=== PATIENT | male | born 1990 | race Hispanic/Latino ===

== ENCOUNTER 2017-01-02 00:07 | Emergency (ER) | payer OTHER ==
[~2017-01-02] VITALS: Ht 180.3 cm; Wt 108.0 kg
[~2017-01-02 00:07] MED LIST: ABILIFY15 MG PO; NO HOME MEDS; SEROQUEL50 MG PO
[2017-01-02 00:41] LABS: HEMATOCRIT 44.7 % (38.0-50.0); MCH 28.5 PG (29.0-34.0); MCHC 33.6 G/DL (30.0-36.0); MCV 84.8 FL (86-99); MEAN PLAT.VOLUME 8.9 uM^3 (9.0-12.4); PLATELET COUNT 359 K/uL (156-360); RED BLOOD COUNT 5.27 M/uL (4.00-5.50); WHITE BLOOD COUNT 14.5 K/uL (4.1-10.2)
[2017-01-02 00:53] LABS: CHLORIDE 105 mEq/L (99-109); POTASSIUM 3.6 mEq/L (3.7-5.4); SODIUM 139 mEq/L (136-147)
[2017-01-02 00:55] LABS: GLUCOSE 114 mg/dL (70-99)
[2017-01-02 00:56] LABS: ANION GAP 14 MEQ/L (2-14)
[2017-01-02 00:57] LABS: TOTAL BILIRUBIN 1.1 mg/dL (0.0-1.0)
[2017-01-02 00:58] LABS: SERUM ETHYL ALCOHOL < 10 mg/dL
[2017-01-02 00:59] LABS: GFR ESTIMATE (CALCULATED) > 59 mL/min/
[2017-01-02 01:00] LABS: ALKALINE PHOSPHATASE 84 IU/L (3-129)
[2017-01-02 01:01] LABS: DIRECT BILIRUBIN 0.4 mg/dL (0.0-0.3); UREA NITROGEN (BUN) 22 mg/dL (9-23)
[2017-01-02 01:02] LABS: SALICYLATE < 5.0 MG/DL (15-30)
[2017-01-02 05:21] LABS: TOTAL BILIRUBIN 1.2 mg/dL (0.0-1.0)
[2017-01-02 05:22] LABS: ALKALINE PHOSPHATASE 80 IU/L (3-129)
[2017-01-02 05:25] LABS: DIRECT BILIRUBIN 0.4 mg/dL (0.0-0.3)
[2017-01-02 05:45] VITALS: BP 112/77
== END 2017-01-02 06:22 | disposition home or self-care (01) ==
LOC: EME 00:07
PROVIDERS: Emergency Medicine
DX: T48.4X1A Poisoning by expectorants, accidental (unintentional), initial encounter (principal); T45.0X1A Poisoning by antiallergic and antiemetic drugs, accidental (unintentional), initial encounter; F32.9 Major depressive disorder, single episode, unspecified
CPT/HCPCS: 80048; 80076; 81003; 85027; 90837; 93005; 99281; 99285; G0480